=== PATIENT | female | born 1945 | race Caucasian/White ===

== ENCOUNTER → 2016-10-10 | Outpatient (CLI) | payer MEDICARE, BC | END | disposition short-term general hospital (02) | LOC: CLCARD 04:45 | DX: I48.2 Chronic atrial fibrillation (principal); I44.2 Atrioventricular block, complete; R00.1 Bradycardia, unspecified; I42.8 Other cardiomyopathies; Z95.4 Presence of other heart-valve replacement; Z95.0 Presence of cardiac pacemaker; Z95.1 Presence of aortocoronary bypass graft ==